=== PATIENT | female | born 1995 | race Caucasian/White ===

== ENCOUNTER 2018-10-08 10:58 | Emergency (ER) | payer OTHER ==
[2018-10-08 11:16] VITALS: BP 129/83
--- NOTE | 2018-10-08 12:00 | ER Document Report ---
HPI - HPI Time Seen by Provider: 10/08/18 11:27 Pain Level: 4 Notes: Patient is an otherwise healthy 23-year-old female presenting to the emergency department with complaints of right arm pain with numbness and tingling from her shoulder to her elbow. She reports that she was sent from the [place] [facility]. She states that it feels like she hit her funny bone. She denies any new injury or trauma. She does report upper back pain chronically in the cervical and thoracic region. She denies any dizziness, headache, blurred vision or nausea. - CONSTITUTIONAL Constitutional: DENIES: Fever, Chills - EENT EENT: DENIES: Sore Throat, Ear Pain, Eye problems - NEURO Neurology: DENIES: Headache, Weakness, Vision blurred, Dizzinesss / Vertigo - CARDIOVASCULAR Cardiovascular: DENIES: Chest pain - RESPIRATORY Respiratory: DENIES: Trouble Breathing, Coughing - GASTROINTESTINAL Gastrointestinal: DENIES: Abdominal Pain, Black / Bloody Stools - URINARY Urinary: DENIES: Dysuria, Urgency, Frequency - REPRODUCTIVE Reproductive: DENIES: : - MUSCULOSKELETAL Musculoskeletal: REPORTS: Extremity pain Past Medical History - General Information source: Patient - Social History Smoking Status: Never Smoker Chew tobacco use (# tins/day): No Frequency of alcohol use: None Drug Abuse: None Family History: Reviewed & Not Pertinent Patient has suicidal ideation: No Patient has homicidal ideation: No - Medical History Medical History: Negative Renal/ Medical History: Denies: Hx Peritoneal Dialysis Surgical Hx: Negative - Immunizations Immunizations up to date: Yes Vertical Provider Document - CONSTITUTIONAL Notes: PHYSICAL EXAMINATION: GENERAL: Well-appearing, well-nourished and in no acute distress. HEAD: Atraumatic, normocephalic. EYES: Pupils equal round extraocular movements intact, conjunctiva are normal. ENT: Nares patent NECK: Normal range of motion LUNGS: No respiratory distress Musculoskeletal: Normal range of motion to bilateral upper extremities, normal sensation to right arm. Tenderness to palpation to paraspinous muscles in the thoracic region on the right side as well as mild tenderness to palpation just lateral to the cervical spine. No spinal tenderness, step-off or deformity on palpation. NEUROLOGICAL: Normal speech, normal gait. PSYCH: Normal mood, normal affect. SKIN: Warm, Dry, normal turgor, no rashes or lesions noted. - INFECTION CONTROL TRAVEL OUTSIDE OF THE [place] IN LAST 30 DAYS: No Course - Re-evaluation Re-evalutation: An x-ray was performed of the thoracic spine which is negative. Patient is likely suffering symptoms of a nerve root impingement. [facility] if her pain continues. ED return precautions were discussed and patient verbalized understanding of same. - Vital Signs Vital signs: Temp Pulse Resp BP Pulse Ox 97.9 F 84 16 129/83 H 99 10/08/18 11:14 10/08/18 11:14 10/08/18 11:14 10/08/18 11:14 10/08/18 11:14 Discharge - Discharge Clinical Impression: Thoracic nerve root impingement, Cervical nerve root impingement Condition: Stable Disposition: HOME, SELF-CARE Additional Instructions: The x-ray taken today was unremarkable. Your symptoms are most likely being caused by a nerve impingement. Take ibuprofen 600 mg every 6 hours to help with any pain and inflammation. [facility], let them know that you were seen here and that our recommendation is that you have an MRI done if your pain and numbness and tingling continue. Forms: Return to Work Referrals: [facility] [[facility] Provider] - Follow up as needed
--- NOTE | 2018-10-08 12:02 | RADIOLOGY REPORT (SQ) ---
EXAM DESCRIPTION: T SPINE AP/LAT COMPLETED DATE/TIME: 10/08/2018 11:53 am REASON FOR STUDY: back pain COMPARISON: None. NUMBER OF VIEWS: Two views. TECHNIQUE: AP and lateral radiographic images acquired of the thoracic spine. LIMITATIONS: None. FINDINGS: MINERALIZATION: Normal. ALIGNMENT: Normal. No scoliosis. VERTEBRAE: No fracture or bone lesion. Maintained height, normal segmentation. DISCS: No significant loss of height or significant narrowing. No large osteophytes. HARDWARE: None in the spine. MEDIASTINUM AND SOFT TISSUES: Normal heart size and aortic contour. No soft tissue abnormality. VISUALIZED LUNG COBOS: Clear. OTHER: No other significant finding. IMPRESSION: 1. NO SIGNIFICANT RADIOGRAPHIC FINDING IN THE THORACIC SPINE. TECHNICAL DOCUMENTATION: JOB ID: [id number] [employer]- All Rights Reserved Reading location - IP/workstation name: [email or web address]
== END 2018-10-08 12:36 | disposition home or self-care (01) ==
LOC: ER 10:58
DX: M75.41 Impingement syndrome of right shoulder (principal); M79.601 Pain in right arm; M54.6 Pain in thoracic spine; R20.0 Anesthesia of skin
CPT/HCPCS: 72070; 99283